=== PATIENT | male | born 1970 | race Hispanic/Latino ===

== ENCOUNTER → 2018-12-27 11:11 | Outpatient (CLI) | payer OTHER, SELFPAY ==
[2018-12-27 12:34] LABS: Alanine Aminotransferase 20 IU/L (<50); Albumin 4.6 g/dL (3.5-5.0); Albumin Globulin Ratio 1.5 (1.0-2.8); Alkaline Phosphatase 121 U/L (38-126); Aspartate Aminotransferase 28 IU/L (17-59); BUN Creatinine Ratio 24.3 (6-22); Bilirubin Total 0.9 mg/dL (0.2-1.3); Blood Urea Nitrogen 17 mg/dL (9-20); Calcium 9.1 mg/dL (8.4-10.2); Carbon Dioxide 29 mmol/L (22-32); Chloride 99 mmol/L (98-107); Cholesterol 185 mg/dL (140-199); Estimated Glomerular Filt Rate > 60.0 mL/min (>60); Glucose 253 mg/dL (70-100); HDL Cholesterol 42 mg/dL (40-60); HEMOLYSIS 34 (0-50); LDL Cholesterol Calculated 102 mg/dL (<100); Potassium 4.1 mmol/L (3.4-5.1); Sodium 137 mmol/L (137-145); Total Protein 7.6 g/dL (6.3-8.2); Triglycerides 206 mg/dL (35-150)
[2018-12-27 13:03] LABS: TSH w/ Reflex to FT4 0.89 uIU/mL (0.47-4.68)
== END ==
PROVIDERS: PCP Family Medicine; Visit Provider Family Medicine
DX: E66.01 Morbid (severe) obesity due to excess calories (principal); I10 Essential (primary) hypertension; Z68.41 Body mass index [BMI] 40.0-44.9, adult; E78.1 Pure hyperglyceridemia
CPT/HCPCS: 36415; 80053; 80061; 84443

== ENCOUNTER → 2019-01-02 14:34 | Outpatient (CLI) | payer BC, SELFPAY ==
[2019-01-02 15:27] LABS: Add Manual Diff / Slide Review NO; Basophils Absolute Auto 100 /uL (0-100); Basophils Percent Auto 1.1 % (0-2); Eosinophils Absolute Auto 200 /uL (0-450); Eosinophils Percent Auto 3.3 % (2-4); Hematocrit 48.7 % (41-53); Hemoglobin 16.9 g/dL (13.5-17.5); Lymphocytes Absolute Auto 1100 /uL (1100-4500); Mean Corpuscular HGB Conc 34.8 % (30-36); Mean Corpuscular Hemoglobin 30.2 PG (26-34); Mean Corpuscular Volume 86.9 fL (80-100); Monocytes Absolute Auto 500 /uL (0-900); Monocytes Percent Auto 9.8 % (3-14); Neutrophils Absolute Auto 3500 /uL (1500-7000); Neutrophils Percent Auto 64.8 % (50-75); Platelet Count 208 X10^3/uL (150-400); Red Cell Distribution Width 13.3 % (11.6-14.8); White Blood Cell Count 5.3 X10^3/uL (4.5-11.0)
[2019-01-02 15:30] LABS: Hemoglobin A1C% w Est Avg Glu 9.5 % (4.0-6.0)
[2019-01-02 16:13] LABS: Creatinine Urine Random 99.5 mg/dL
[2019-01-02 16:16] LABS: Microalbumi Creatinin Ratio Ur 31.1 ug/mg CR (<30); Microalbumin Urine Random 3.1 mg/dL (0-1.6)
== END ==
PROVIDERS: PCP Family Medicine; Visit Provider Family Medicine
DX: R73.9 Hyperglycemia, unspecified (principal); E11.9 Type 2 diabetes mellitus without complications
CPT/HCPCS: 36415; 82043; 82570; 83036; 85025

== ENCOUNTER → 2019-01-17 12:45 | Outpatient (CLI) | payer BC, SELFPAY ==
--- NOTE | 2019-01-17 14:31 | DIET.PN ---
Dietary Note Diabetes Intake: Initial Assessment Assess: Mr. Barakat is a 48 YOM referred for type 2 diabetes. Reports family HX of diabetes (mother). He has been concerned with having high BG and has lost almost 60 # in the last 3 yrs. He reports significant changes to dietary habits since diagnosis (x 2weeks ago), but began making small changes around a year ago when his had bariatric surgery. He is exercising 4-5 days/week. He presents with several questions regarding appropriate dietary choices and is eager to get his blood glucose under control. Labs: Per pt report: A1c: 9.5 Chol: 253 Tri LDL: 102 HDL: 42 MicroAlb:Cr: 31.1 Meds: metformin 1000mg BID Diet: per 24 hr recall: B: 1 c oatmeal w/ 1 c milk and dehydrated berries L: Varies D: stir-fries; protein, starch, veg Wt: 254 lb Ht: 69 in BMI: 37.5 Goal Weight: 130-140 (5% weight loss) DX: Altered nutrition related laboratory values related to impaired glucose metabolism, lack of previous exposure to nutrition information as evidenced by pt report, diagnosis of diabetes, previous diet high in refined carbohydrates. Intervention: 1. Completed intake assessment. Discussed barriers to care. 2. Discussed pathophysiology of diabetes. Reviewed A1c and its correlation to blood glucose numbers. Discussed recommended BG ranges. 3. Discussed importance of self-monitoring, how often, and when to check. Recommend pt check FBG and alternate 2hr PP mealtime. 4. Reviewed hyper/hypoglycemia and treatment. 5. Reviewed safe disposal of equipment (strip/lancets/insulin needles). 6. Created SMART goals for pt self-care and success. 7. Discussed program curriculum outline and class needs based on individual goals. Monitor/Evaluate: Anticipate excellent compliance. Pt will attend full DSME program.
== END ==
PROVIDERS: PCP Family Medicine; Visit Provider Family Medicine
DX: E11.9 Type 2 diabetes mellitus without complications (principal); E66.9 Obesity, unspecified; Z68.37 Body mass index [BMI] 37.0-37.9, adult; Z71.3 Dietary counseling and surveillance
CPT/HCPCS: G0108

== ENCOUNTER → 2019-01-31 09:56 | Outpatient (CLI) | payer BC, SELFPAY ==
--- NOTE | 2019-01-31 12:07 | DIET.PN ---
Exercise/Lifestyle change (1 hr): 1. Importance of exercise 2. FITT (frequency, intensity, time, type) 3. Strength training tips and guidelines 4. Glucose monitoring/ranges before and after 5. Proper foot attire 6. Developing strategies for behavior change 7. SMART Goal Setting 8. Home exercise routine demonstration (as a class)
== END ==
PROVIDERS: PCP Family Medicine; Visit Provider Family Medicine
DX: E11.9 Type 2 diabetes mellitus without complications (principal); Z71.3 Dietary counseling and surveillance
CPT/HCPCS: G0109

== ENCOUNTER → 2019-02-14 09:46 | Outpatient (CLI) | payer BC, SELFPAY ==
--- NOTE | 2019-02-14 12:55 | DIET.PN ---
Diabetes: Healthy Eating 2 Intervention: Fats effects on glucose, weight, heart disease, cholesterol Sat Vs Unsat Protein- animal and plant based options Low, med, high fat meats Sugar substitutes Sodium Health claims Grocery shopping guidelines Eating away from home Alcohol Sick day guidelines
== END ==
PROVIDERS: PCP Family Medicine; Visit Provider Family Medicine
DX: E11.9 Type 2 diabetes mellitus without complications (principal); Z71.3 Dietary counseling and surveillance
CPT/HCPCS: G0109

== ENCOUNTER → 2019-03-14 09:55 | Outpatient (CLI) | payer OTHER, SELFPAY ==
--- NOTE | 2019-03-14 12:20 | DIET.PN ---
Diabetes: Healthy Eating 1 Intervention: ? Discussed pathophysiology of diabetes and impact of nutrition/diet on blood sugar control.? Discussed fed versus non-fed state.?? ? Reviewed importance of Balance, Variety, and Moderation. ? Discussed the effect of carbohydrates/protein/fat on blood sugar control.? ? Stressed importance of consistent carbohydrate intake at each meal and provided instructions for recommended servings/portions of carbohydrates/protein per meal. Provided educational material. ? Reviewed carbohydrate counting and measuring carbohydrate content via serving sizes and reading nutrition labels.? Provided handouts.?? ? Discussed the difference between simple versus complex carbohydrates and the effect of fiber on blood sugar control.? Discussed various methods to increase fiber content in diet. ? Discussed the plate method for creating more carbohydrate conscious balanced meals. ? Stressed importance of meal timing and not going >4-5 hours between meals. Encouraged adding protein to evening snack to support glucose control overnight. ? Discussed importance of making dietary habits part of lifestyle change.
== END ==
PROVIDERS: PCP Family Medicine; Visit Provider Family Medicine
DX: E11.9 Type 2 diabetes mellitus without complications (principal); Z71.3 Dietary counseling and surveillance
CPT/HCPCS: G0109

== ENCOUNTER → 2019-03-21 11:53 | Outpatient (CLI) | payer OTHER, SELFPAY ==
[2019-03-21 13:31] VITALS: BMI 38.2
--- NOTE | 2019-03-21 13:50 | DIET.PN ---
DIABETES Nutrition Initial Assessment:? ASSESS:???Mr. Barakat is a 49 yom? referred for type 2 diabetes seen as part of DSME program. He is recently diagnosed and has made several dietary changes since diagnosis. He has cut out all soda and most alcohol. He reports doing much better with meal planning and preparation including making breakfast (overnight oats) the night before and his lunch smoothie before work. His challenges are with his evening meal and portions. He has tried to cut down on starches, but still finds limiting his dishes. He has also cut down on dining out to 1 x/wk. He is disappointed he has not been able to lose weight, but does contribute some of this to gaining lean body mass. He also reports struggling during the holidays, but has gotten back on track over the last couple of weeks. ? LABS: Per pt report:? A1c: 9.5 FB-150 ? MEDS:?? metf 1000 mg BID ? DIET: Per 24-hour recall:? B: 1c oatmeal, 1c milk, dried blueb, walnuts L: Shake (1 c spinach, 1/2c blueb, 1 banana, nonfat croatian yogurt, protein powder, keanu ramon vinegar, turmeric) D: pro, small starch, veg ? Weight: 258 (up 4 lb) Ht:?69 in BMI: 38.1 ? Exercise:? weight lifting 2-3 x/wk ; walking all day at work NUTRITION DX 1. Altered Nutrition related labs related to impaired glucose metabolism, lack of previous exposure to accurate nutrition information as evidenced by pt report, dx of diabetes, previous diet high in refined carbohydrates.? INTERVENTION(s): 1. Reviewed the effect of carbohydrates/protein/fat on blood sugar control.? Stressed importance of consistent carbohydrate intake at each meal and provided instructions for recommended servings/portions of carbohydrates/protein per meal. 2. Reviewed carbohydrate counting and measuring carbohydrate content via serving sizes and reading nutrition labels.? 3. Provided information on healthy options in exchange for starchy sides and dressings. 4. Provided resources for finding healthy recipes including ?[employer] and ?calorieking? 5. Discussed healthy weight loss goals of 1-2lbs per week through diet and exercise.? 6. Recommend monitoring fasting and alternating 2 hr PP mealtime glucose. 7. Discussed medication management and possibility of needing and additional med if A1c is not down. Provided information on different oral meds and insulin. MONITOR/EVALUATE: Anticipate good compliance.? Follow-up scheduled for 1 month.
== END ==
PROVIDERS: PCP Family Medicine; Visit Provider Family Medicine
DX: E11.9 Type 2 diabetes mellitus without complications (principal); Z79.4 Long term (current) use of insulin
CPT/HCPCS: G0109

== ENCOUNTER → 2019-03-28 09:49 | Outpatient (CLI) | payer OTHER, SELFPAY ==
--- NOTE | 2019-03-28 12:20 | DIET.PN ---
Diabetes Physiology: Intervention 1. Diabetes physiology 2. Detecting and treatment of acute and chronic complications 3. Diagnosis of and difference in types of diabetes 4. Self-monitoring and pattern management a. Demonstrate glucometer and control testing b. Explain BG results and action to take when out of range. 5. Foot , eye, dental care 6. Medications a. Oral medication classification b. Injectable c. Insulin i. Injection protocol i. Other delivery methods
== END ==
PROVIDERS: PCP Family Medicine; Visit Provider Family Medicine
DX: E11.9 Type 2 diabetes mellitus without complications (principal); Z71.3 Dietary counseling and surveillance
CPT/HCPCS: G0109

== ENCOUNTER → 2019-04-30 10:53 | Outpatient (CLI) | payer OTHER, SELFPAY ==
[2019-04-30 12:23] LABS: Hemoglobin A1C% w Est Avg Glu 6.1 % (4.0-6.0)
[2019-04-30 12:41] LABS: BUN Creatinine Ratio 16.7 (6-22); Blood Urea Nitrogen 15 mg/dL (9-20); Calcium 9.3 mg/dL (8.4-10.2); Carbon Dioxide 27 mmol/L (22-32); Chloride 102 mmol/L (98-107); Estimated Glomerular Filt Rate > 60.0 mL/min (>60); Glucose 114 mg/dL (70-100); HEMOLYSIS < 15 (0-50); Potassium 4.2 mmol/L (3.4-5.1); Sodium 140 mmol/L (137-145)
--- NOTE | 2019-05-09 12:44 | DIET.PN ---
Diabetes Follow Up Assess: Mr. Barakat was seen for his 3 mo follow up visit. Reports increased work hours and stress over the last several weeks making it difficult to exercise and follow his normal meal plan. However, he has been able to maintain bg values between 90-150. He reports frustration with inability to lose weight. Labs: A1c: 6.1 (down from 9.5) Meds: metformin 1000 mg BID Ht: 69 in Wt: 259 lb BMI: 38.24 Nutrition DX: Altered nutrition related laboratory values related to impaired glucose metabolism, lack of previous exposure to nutrition information as evidenced by pt report, diagnosis of diabetes, previous diet high in refined carbohydrates. Intervention: 1. Completed follow up assessment. Reviewed barriers to care. 2. Reviewed new labs and importance of continued BG monitoring. 3. Reviewed SMART goals and made modifications where appropriate including wt management, activity, and A1c goals. 4. Discussed plan for ongoing support. Provided information for continued support and success. SMART goals: 1. Continued glucose control through diet, exercise, and medication management. 2. Lose 5% of body weight by meal prepping, portion control, and increase physical activity. Monitor/Evaluate: Pt will follow up in 3 mo to discuss new labs and barriers to care.
== END ==
PROVIDERS: PCP Family Medicine; Referring Provider Family Medicine; Visit Provider Family Medicine
DX: E11.9 Type 2 diabetes mellitus without complications (principal)
CPT/HCPCS: 36415; 80048; 83036

== ENCOUNTER → 2019-05-09 11:51 | Outpatient (CLI) | payer OTHER, SELFPAY | PROVIDERS: PCP Family Medicine; Referring Provider Family Medicine; Visit Provider Family Medicine | DX: E11.9 Type 2 diabetes mellitus without complications (principal); Z79.84 Long term (current) use of oral hypoglycemic drugs; E66.9 Obesity, unspecified; Z68.38 Body mass index [BMI] 38.0-38.9, adult; Z71.3 Dietary counseling and surveillance | CPT/HCPCS: G0109 ==

== ENCOUNTER → 2019-08-08 09:30 | Outpatient (CLI) | payer OTHER, SELFPAY ==
[2019-08-08 10:16] LABS: Hemoglobin A1C% w Est Avg Glu 6.7 % (4.0-6.0)
== END ==
PROVIDERS: PCP Family Medicine; Referring Provider Family Medicine; Visit Provider Family Medicine
DX: E11.9 Type 2 diabetes mellitus without complications (principal)
CPT/HCPCS: 36415; 83036

== ENCOUNTER → 2020-01-02 08:31 | Outpatient (CLI) | payer OTHER, SELFPAY ==
[2020-01-05 07:46] LABS: COVID19 Sendout Not Detected (Not Detect)
== END ==
PROVIDERS: PCP Family Medicine; Visit Provider Physician Assistant
DX: Z11.59 Encounter for screening for other viral diseases (principal)
CPT/HCPCS: 87635

== ENCOUNTER → 2024-12-11 08:48 | Outpatient (CLI) | payer OTHER, SELFPAY ==
[2024-12-11 10:16] LABS: Hematocrit 44.2 % (41-53); Hemoglobin 15.6 g/dL (13.5-17.5); Mean Corpuscular HGB Conc 35.3 % (30-36); Mean Corpuscular Hemoglobin 30.0 PG (26-34); Mean Corpuscular Volume 85.1 fL (80-100); Platelet Count 219 X10^3/uL (150-400)
[2024-12-11 10:55] LABS: Hemoglobin A1C% w Est Avg Glu 8.1 % (4.0-6.0)
[2024-12-11 10:57] LABS: Alanine Aminotransferase 17 IU/L (<50); Albumin 4.4 g/dL (3.5-5.0); Albumin Globulin Ratio 1.6 (1.0-2.8); Alkaline Phosphatase 104 U/L (38-126); Blood Urea Nitrogen 10 mg/dL (9-20); Calcium 8.9 mg/dL (8.4-10.2); Carbon Dioxide 25 mmol/L (22-32); Chloride 102 mmol/L (98-107); Cholesterol 160 mg/dL (140-199); Estimated Glomerular Filt Rate > 60 mL/min (>60); Globulin 2.8 g/dL (1.7-4.1); Glucose 168 mg/dL (70-99); HDL Cholesterol 35 mg/dL (40-60); HEMOLYSIS 18 (0-50); Potassium 4.3 mmol/L (3.4-5.1); Sodium 137 mmol/L (137-145); Total Protein 7.2 g/dL (6.3-8.2); Triglycerides 126 mg/dL (35-150)
[2024-12-11 11:07] LABS: Microalbumi Creatinin Ratio Ur 33.0 ug/mg CR (<30)
[2024-12-11 16:04] LABS: HIV 1 & 2 Ab/Ag 4th Gen Combo NEGATIVE (NEGATIVE); Hep C Virus Ab w/Reflex Quant NEGATIVE s/c (NEGATIVE)
== END ==
PROVIDERS: PCP Family Medicine; Referring Provider Family Medicine; Visit Provider Family Medicine
DX: E11.9 Type 2 diabetes mellitus without complications (principal); I10 Essential (primary) hypertension; Z11.4 Encounter for screening for human immunodeficiency virus [HIV]; Z11.59 Encounter for screening for other viral diseases
CPT/HCPCS: 36415; 80053; 80061; 82043; 82570; 83036; 85027; 86803; 87389